=== PATIENT | male | born 1990 | race Caucasian/White ===

== ENCOUNTER 2016-04-09 13:58 | Emergency (ER) | payer OTHER ==
[~2016-04-09] VITALS: Ht 177.8 cm; Wt 80.0 kg
[~2016-04-09 13:58] MED LIST: AMOX500T PO; CORTIS10A AU; LORTA5 PO
[2016-04-09 13:59] VITALS: BP 117/86; PULSE 64; RESP 12; TEMP 98.4; O2SAT 97
[2016-04-09 19:25] VITALS: BP 120/80; PULSE 59; RESP 16; TEMP 98.7; O2SAT 100
[2016-04-09] MEDS ORDERED: SODIUM CHLOR 0.9% 1000 ML INJ 1,000 ML IV SCH (19:32)
--- NOTE | 2016-04-09 19:34 | PD ---
HPI Chief Complaint: Pain: Acute or Chronic Time Seen by Provider: 19:33 Travel History International Travel<30 days: No Contact w/Intl Traveler<30days: No Traveled to known affect area: No History of Present Illness HPI 25-year-old male presents to the ED for evaluation of sharp, pinpoint left- sided chest pain. Onset approximately 9 this morning while sitting at the breakfast table. Rated 4/10 on presentation, 8/10 maximally. Worsened by deep breathing. The patient denies associated palpitations, shortness of breath, nausea/vomiting, diaphoresis or radiation of the pain. He denies acute injury or recent overuse. He denies history of smoking, illicit drug use. He does endorse drinking "like a fish." Denies family history of Brugada syndrome, WPW. Endorses familial history of father with fatal UT at age 49. PFSH Social History Alcohol Use: Yes Tobacco Use: No Substance Use: No Allergies-Medications (Allergen,Severity, Reaction): Coded Allergies: No Known Allergies (Unverified , 04/09/16) Reported Meds & Prescriptions Reported Meds & Active Scripts Active Amoxil (Amoxicillin) 500 Mg Cap 500 Mg PO TID [place] 5/325 (Hydrocodone-Acetaminophen) Acetaminophen 325/5 Hydrocodone Tab 1 Tab PO Q6H PRN Cortisporin Otic (Neomycin/Polymyxin/Hydrocortisone) 10 Ml Susp 6 Drop AU TID DISPENSE 1 BOTTLE Review of Systems Except as stated in HPI: all other systems reviewed are Neg Physical Exam Narrative GENERAL: Well-nourished, well-developed, anxious white male in no acute distress. SKIN: Warm and dry. HEAD: Normocephalic. EYES: No scleral icterus. No injection or drainage. NECK: Supple, trachea midline. No JVD or lymphadenopathy. CARDIOVASCULAR: Regular rate and rhythm without murmurs, gallops, or rubs. 2+ DP and radial pulses bilaterally. PRECORDIUM: No tenderness to palpation or reproducible pain over the anterior chest bilaterally. RESPIRATORY: Breath sounds clear and equal bilaterally. No accessory muscle use. GASTROINTESTINAL: Abdomen soft, non-tender, nondistended. Active bowel sounds. MUSCULOSKELETAL: No cyanosis, or edema. The patient is ambulatory, moves all extremities spontaneously. BACK: Nontender without obvious deformity. No CVA tenderness. Data Data Last Documented VS Vital Signs Date Time Temp Pulse Resp B/P Pulse Ox O2 Delivery O2 Flow Rate FiO2 04/09/16 19:25 98.7 59 16 120/80 100 Room Air Orders Electrocardiogram (04/09/16 ) Electrocardiogram (04/09/16 19:32) Basic Metabolic Panel (Bmp) (04/09/16 19:32) Ckmb (Isoenzyme) Profile (04/09/16 19:32) Complete Blood Count With Diff (04/09/16 19:32) Magnesium (Mg) (04/09/16 19:32) Prothrombin Time / Inr (Pt) (04/09/16 19:32) Act Partial Throm Time (Ptt) (04/09/16 19:32) Troponin I (04/09/16 19:32) Chest, Single Ap (04/09/16 19:32) Iv Access Insert/Monitor (04/09/16 19:32) Sodium Chloride 0.9% Flush (Ns Flush) (04/09/16 19:45) Sodium Chlor 0.9% 1000 Ml Inj (Ns 1000 M (04/09/16 19:32) CKMB (04/09/16 19:30) CKMB% (04/09/16 19:30) Labs Laboratory Tests Test 04/09/16 19:30 White Blood Count 10.2 TH/MM3 Red Blood Count 4.90 MIL/MM3 Hemoglobin 14.9 GM/DL Hematocrit 43.9 % Mean Corpuscular Volume 89.7 FL Mean Corpuscular Hemoglobin 30.3 PG Mean Corpuscular Hemoglobin 33.8 % Concent Red Cell Distribution Width 13.5 % Platelet Count 257 TH/MM3 Mean Platelet Volume 8.3 FL Neutrophils (%) (Auto) 69.1 % Lymphocytes (%) (Auto) 20.6 % Monocytes (%) (Auto) 6.3 % Eosinophils (%) (Auto) 3.6 % Basophils (%) (Auto) 0.4 % Neutrophils # (Auto) 7.1 TH/MM3 Lymphocytes # (Auto) 2.1 TH/MM3 Monocytes # (Auto) 0.6 TH/MM3 Eosinophils # (Auto) 0.4 TH/MM3 Basophils # (Auto) 0.0 TH/MM3 CBC Comment DIFF FINAL Differential Comment Prothrombin Time 10.6 SEC Prothromb Time International 1.0 RATIO Ratio Activated Partial 25.1 SEC Thromboplast Time Sodium Level 136 MEQ/L Potassium Level 4.0 MEQ/L Chloride Level 101 MEQ/L Carbon Dioxide Level 27.4 MEQ/L Anion Gap 8 MEQ/L Blood Urea Nitrogen 14 MG/DL Creatinine 1.21 MG/DL Estimat Glomerular Filtration 74 ML/MIN Rate Random Glucose 90 MG/DL Calcium Level 9.4 MG/DL Magnesium Level 1.8 MG/DL Total Creatine Kinase 149 U/L Creatine Kinase MB 1.2 NG/ML Troponin I LESS THAN 0.02 NG/ML MDM Medical Decision Making Medical Screen Exam Complete: Yes Emergency Medical Condition: Yes Interpretation(s) EKG rate 47, sinus rhythm. FL interval 146. QRS interval 109. QTc 386. Normal axis. No ischemic changes. Reviewed by Dr. Sanchez. Differential Diagnosis Musculoskeletal pain versus alcoholic cardiomyopathy versus angina versus pericarditis versus ACS versus other Narrative Course 25-year-old male presents to the ED for evaluation of sharp, pinpoint left- sided chest pain. Onset approximately 9 this morning while sitting at the breakfast table. Rated 4/10 on presentation, 8/10 maximally. Worsened by deep breathing. The patient denies associated palpitations, shortness of breath, nausea/vomiting, diaphoresis or radiation of the pain. He denies acute injury or recent overuse. He denies history of smoking, illicit drug use. He does endorse drinking "like a fish." Denies family history of Brugada syndrome, WPW. Endorses familial history of father with fatal UT at age 49. Vitals reviewed. Physical exam reveals a young male in excellent health. No tenderness to palpation of the precordium. Regular rhythm without appreciable murmurs, rubs, gallops. Chest clear to auscultation bilaterally. Palpable equal pulses in bilateral extremities. IV was established. I offered the patient pain medications which he refused. Patient was administered a liter of normal saline. EKG rate 47, sinus rhythm. No ischemic changes, reviewed by Dr. Sanchez. CBC, CMP unremarkable. Cardiac enzymes negative. Chest x-ray without acute cardiopulmonary disease. I discussed the results of the workup with the patient. I offered him admission to the chest pain center for further serial EKGs and cardiac enzymes which he refused. I advised the patient to utilize [id number] anti-inflammatory medications for the next few days, avoid strenuous exercise or heavy lifting, avoid binge drinking, follow-up with the primary care provider, return for worsening of symptoms. He indicated understanding of instructions and is amenable to plan of care. He is stable and discharged home. Diagnosis Primary Impression: Chest pain Qualified Code: R07.1 - Chest pain on breathing Referrals: Primary Care Physician Patient Instructions: Chest Wall Pain (ED), General Instructions Additional Instructions: Rest, hydrate. Resume normal, gentle activities as tolerated. Aleve or ibuprofen as discussed. Follow-up with the primary care provider. Return to the ED for worsening of symptoms or any urgent or emergent medical condition. Disposition: 01 DISCHARGE HOME Condition: Serious Angelita Caraballo Apr 09, 2016 19:34
[2016-04-09] MEDS ORDERED: SODIUM CHLORIDE 0.9% FLUSH 5 ML FLUSH IVF PRN (19:45)
[2016-04-09 20:00] LABS: AUTOMATED NEUTROPHIL # 7.1 TH/MM3 (1.8-7.7); BASOPHIL % 0.4 % (0.0-2.0); EOSINOPHIL # 0.4 TH/MM3 (0-0.4); EOSINOPHIL % 3.6 % (0.0-4.0); HEMATOCRIT 43.9 % (39.0-51.0); HEMO FLAGS DIFF FINAL; LYMPH % 20.6 % (9.0-44.0); LYMPHOCYTE # 2.1 TH/MM3 (1.0-4.8); MEAN CELL VOLUME 89.7 FL (80.0-100.0); MEAN CORPUSCULAR HEMOGLOBIN 30.3 PG (27.0-34.0); MEAN CORPUSCULAR HGB CONC 33.8 % (32.0-36.0); MONO % 6.3 % (0.0-8.0); NEUT % 69.1 % (16.0-70.0); PLATELET COUNT 257 TH/MM3 (150-450); RED CELL DISTRIBUTION WIDTH 13.5 % (11.6-17.2); WHITE BLOOD COUNT 10.2 TH/MM3 (4.0-11.0)
[2016-04-09 20:07] LABS: APTT (PATIENT) 25.1 SEC (24.3-30.1); PROTHROMBIN TIME - PATIENT 10.6 SEC (9.8-11.6)
[2016-04-09 20:24] LABS: ANION GAP 8 MEQ/L (5-15); BICARBONATE 27.4 MEQ/L (21.0-32.0); BLOOD UREA NITROGEN 14 MG/DL (7-18); CHLORIDE 101 MEQ/L (98-107); GLOMERULAR FILTRATION RATE 74 ML/MIN (>89); MAGNESIUM 1.8 MG/DL (1.5-2.5); SODIUM (NA) 136 MEQ/L (136-145)
[2016-04-09 20:29] LABS: CREATINE KINASE 149 U/L (39-308)
[2016-04-09 20:41] LABS: CKMB 1.2 NG/ML (0.5-3.6)
--- NOTE | 2016-04-09 20:41 | RADRPT ---
EXAM DATE/TIME: 04/09/2016 20:09 [facility] COMPARISON: No previous studies available for comparison. INDICATIONS : Chest pain. MEDICAL HISTORY : None. SURGICAL HISTORY : None. ENCOUNTER: Initial ACUITY: 1 day PAIN SCORE: 6/10 LOCATION: Bilateral Chest FINDINGS: A single view of the chest demonstrates the lungs to be symmetrically aerated without evidence of mas s, infiltrate or effusion. The cardiomediastinal contours are unremarkable. Osseous structures are intact. CONCLUSION: No acute disease. Steve Wagner MD on April 09, 2016 at 20:39 Board Certified Radiologist. This report was verified electronically.
[2016-04-09 20:53] VITALS: BP 120/78
--- NOTE | 2016-04-10 11:37 | EKG ---
Date Performed: 04/09/2016 Time Performed: 19:25:41 PTAGE: 25 years EKG: SINUS BRADYCARDIA WITH MARKED SINUS ARRHYTHMIA BORDERLINE ECG INTERPRETATION BASED ON A DEF TARIQ AGE OF 41 YEARS NO PREVIOUS TRACING DOCTOR: Vinicius Sosa Interpretating Date/Time 04/10/2016 11:36:52
--- NOTE | 2016-04-10 11:45 | EKG ---
Date Performed: 04/09/2016 Time Performed: 14:16:12 PTAGE: 25 years EKG: Sinus rhythm WITH SINUS ARRHYTHMIA NORMAL ECG NO PREVIOUS TRACING DOCTOR: Vinicius Sosa Interpretating Date/Time 04/10/2016 11:44:27
== END 2016-04-09 20:15 | disposition home or self-care (01) ==
LOC: NETRI 13:58
DX: R07.1 Chest pain on breathing (principal); R00.1 Bradycardia, unspecified
CPT/HCPCS: 71010; 80048; 82550; 82552; 83735; 84484; 85025; 85610; 85730; 93005; 96360; 99285; J7030